=== PATIENT | female | born 1935 | race Caucasian/White ===

== ENCOUNTER 2020-03-12 23:30 | Emergency (ER) | payer MEDICARE, SELFPAY ==
[2020-03-12 23:34] VITALS: BP 178/81; PULSE 71; RESP 16; TEMP 36.2; O2SAT 98; BMI 31.8
[2020-03-12 23:50] LABS: Glucose Point of Care 467 mg/dL (70-110)
[2020-03-13 00:53] LABS: Glucose Point of Care 443 mg/dL (70-110)
== END 2020-03-13 00:57 ==
PROVIDERS: Emergency Provider Family Medicine; PCP Internal Medicine Medical Oncology
DX: Z53.21 Procedure and treatment not carried out due to patient leaving prior to being seen by health care provider (principal)
CPT/HCPCS: 36416; 82962; 99281